=== PATIENT | female | born 1995 | race Caucasian/White ===

== ENCOUNTER 2016-11-09 08:40 | Emergency (ER) | payer OTHER, MEDICAID ==
[2016-11-09 08:53] VITALS: BP 119/77
--- NOTE | 2016-11-09 08:56 | ER Document Report ---
[id number] CONCERN Notes: The patient is a 21-year-old female, past medical history anxiety, hypothyroidism, presents with multiple complaints. She began to take Paxil yesterday and since then, she has felt jittery. She was supposed to take half a pill for 6 days but took an entire pill yesterday. She has a follow-up appointment with her primary care physician in one hour. She has not had her Xanax for several days. She is also having intermittent tingling in her fingers and toes and intermittently feeling like she is mildly short of breath. Her symptoms are resolving. She denies chest pain, fevers, headache, blurry vision , SI or HI. TRAVEL OUTSIDE OF THE [place] IN LAST 30 DAYS: No - Related Data Allergies/Adverse Reactions: Penicillins Allergy (Verified 11/09/16 08:49) itching vancomycin [Vancomycin] Allergy (Verified 11/09/16 08:49) Hives Past Medical History - General Information source: Patient - Social History Smoking Status: Current Every Day Smoker Chew tobacco use (# tins/day): No Frequency of alcohol use: None Drug Abuse: None Family History: Reviewed & Not Pertinent Patient has suicidal ideation: No Patient has homicidal ideation: No Pulmonary Medical History: Reports: Hx Asthma Endocrine Medical History: Reports: Hx Hypothyroidism Past Surgical History: Reports: Hx Orthopedic Surgery - right leg Review of Systems - Review of Systems Notes: REVIEW OF SYSTEMS: CONSTITUTIONAL: -fevers, -chills EENT: -eye pain, -difficulty swallowing, -nasal congestion CARDIOVASCULAR:-chest pain, -syncope. RESPIRATORY: -cough, -SOB GASTROINTESTINAL: -abdominal pain, - nausea, -vomiting, -diarrhea GENITOURINARY: -dysuria, -hematuria MUSCULOSKELETAL: -back pain, -neck pain SKIN: -rash or skin lesions. HEMATOLOGIC: -easy bruising or bleeding. LYMPHATIC: -swollen, enlarged glands. NEUROLOGICAL: -altered mental status or loss of consciousness, -headache, + shakiness PSYCHIATRIC: -anxiety, -depression. ALL OTHER SYSTEMS REVIEWED AND NEGATIVE. Physical Exam - Vital signs Vitals: Temp Pulse Resp BP Pulse Ox 97.6 F 65 18 119/77 97 11/09/16 08:50 11/09/16 08:50 11/09/16 08:50 11/09/16 08:50 11/09/16 08:50 - Notes Notes: PHYSICAL EXAMINATION: GENERAL: Well-appearing, well-nourished and in no acute distress. HEAD: Atraumatic, normocephalic. EYES: Pupils equal round and reactive to light, extraocular movements intact, sclera anicteric, conjunctiva are normal. ENT: nares patent, oropharynx clear without exudates. Moist mucous membranes. NECK: Normal range of motion, supple without lymphadenopathy LUNGS: Breath sounds clear to auscultation bilaterally and equal. No wheezes rales or rhonchi. HEART: Regular rate and rhythm without murmurs ABDOMEN: Soft, nontender, normoactive bowel sounds. No guarding, no rebound. No masses appreciated. EXTREMITIES: Normal range of motion, no pitting or edema. No cyanosis. NEUROLOGICAL: Cranial nerves grossly intact. Normal speech, normal gait. Normal sensory, motor, and reflex exams. PSYCH: Normal mood, anxious SKIN: Warm, Dry, normal turgor, no rashes or lesions noted. Course - Re-evaluation Re-evalutation: Patient's vitals and physical exam are normal. Her neuro symptoms do not fit a specific anatomical pattern. Suspect reaction from taking double the dose of her Paxil and patient out of her Xanax. Told to only take half a pill for the next 5 days, as instructed by her primary care physician. She has an appointment in one hour with her prescriber, so will discharge so she can make her appointment. - Vital Signs Vital signs: Temp Pulse Resp BP Pulse Ox 97.6 F 65 18 119/77 97 11/09/16 08:50 11/09/16 08:50 11/09/16 08:50 11/09/16 08:50 11/09/16 08:50 Discharge - Discharge Clinical Impression: Medication reaction Condition: Good Disposition: HOME, SELF-CARE Additional Instructions: Follow-up with your primary care physician as scheduled today at 10:30. Discuss the risks and benefits of taking Paxil with your primary care physician.
== END 2016-11-09 09:09 | disposition home or self-care (01) ==
LOC: ER 08:40
DX: R06.02 Shortness of breath (principal); R25.8 Other abnormal involuntary movements; T43.225A Adverse effect of selective serotonin reuptake inhibitors, initial encounter; Y92.009 Unspecified place in unspecified non-institutional (private) residence as the place of occurrence of the external cause; Z88.0 Allergy status to penicillin; Z88.3 Allergy status to other anti-infective agents; F17.200 Nicotine dependence, unspecified, uncomplicated; E03.9 Hypothyroidism, unspecified
CPT/HCPCS: 99283